=== PATIENT | male | born 1970 | race Caucasian/White ===

== ENCOUNTER 2022-11-20 09:34 | Outpatient (CLI) | payer OTHER | END 2022-11-20 09:35 | disposition home or self-care (01) | LOC: MRI 09:34 | PROVIDERS: ATTEND Family Medicine | DX: S46.912D Strain of unspecified muscle, fascia and tendon at shoulder and upper arm level, left arm, subsequent encounter (principal); S43.492D Other sprain of left shoulder joint, subsequent encounter; M77.8 Other enthesopathies, not elsewhere classified ==